=== PATIENT | female | born 1960 | race Caucasian/White ===

== ENCOUNTER → 2023-08-08 19:03 | Outpatient (REF) | payer BC, SELFPAY | LOC: WDC 19:03 | PROVIDERS: ATTENDING PHYSICIAN Nurse Practitioner; FAMILY PHYSICIAN Internal Medicine | DX: Z12.31 Encounter for screening mammogram for malignant neoplasm of breast (principal) | CPT/HCPCS: 77063; 77067 ==

== ENCOUNTER → 2023-09-10 10:07 | Outpatient (REF) | payer BC, SELFPAY ==
[2023-09-10 11:16] LABS: % Basophils 0.9 % (0-2); % Eosinophils 2.8 % (0-6); % Immature Granulocytes 0.2 % (0-0.5); % Lymphocytes 29.8 % (20.5-51.1); % Monocytes 7.2 % (1.7-9.3); % Neutrophils 59.1 % (42.2-75.2); Absolute Basophils 0.1 10^3/uL (0-0.2); Absolute Eosinophils 0.2 10^3/uL (0-0.7); Absolute Lymphocytes 1.7 10^3/uL (1.2-3.4); Absolute Monocytes 0.4 10^3/uL (0.1-0.6); Absolute Neutrophils 3.4 10^3/uL (1.4-6.5); Hematocrit 42.7 % (37.0-47.0); Hemoglobin 13.9 g/dL (12.0-16.0); Mean Corp Hgb Conc. 32.6 g/dL (33.0-37.0); Mean Corpuscular Hgb 28.1 pg (27.0-31.0); Mean Corpuscular Volume 86.4 fL (81.0-99.0); Mean Platelet Volume 9.1 fL (7.4-10.4); Nucleated Red Blood Cells % 0 %; Platelet Count 267 10^3/uL (130-400); Red Blood Cell Count 4.94 10^6/uL (4.20-5.40); Red Cell Dist. Width 12.6 % (11.5-14.5); White Blood Cell Count 5.7 10^3/uL (4.8-10.8)
[2023-09-10 11:43] LABS: ALT (SGPT) 14 U/L (0-35); AST (SGOT) 20 U/L (14-36); Albumin 4.1 g/dl (3.5-5.0); Alkaline Phosphatase 88 U/L (38-126); Blood Urea Nitrogen 17 mg/dl (7-17); Calcium 9.5 mg/dl (8.4-10.2); Carbon Dioxide 29 mmol/L (22-30); Chloride 99 mmol/L (98-107); Glucose 134 mg/dl (70-99); HDL Cholesterol 57 mg/dl; LDL Cholesterol, Calculated 81 mg/dl; Potassium 4.3 mmol/L (3.5-5.1); Sodium 136 mmol/L (135-145); Total Bilirubin 0.8 mg/dl (0.2-1.3); Total Cholesterol 161 mg/dl (50-199); Total Protein 7.4 g/dl (6.3-8.2); Triglyceride 115 mg/dl (10-149); Very Low Density Lipoprotein 23 mg/dl (0-30); eGFR > 60.00
[2023-09-10 12:07] LABS: TSH 2.57 uIU/ml (0.47-4.68)
[2023-09-10 12:32] LABS: Microalbumin, Random Urine < 0.6 mg/dl (0.6-1.7)
[2023-09-10 12:49] LABS: Glycohemoglobin (HgbA1c) 7.8 % (4.0-5.6)
== END ==
LOC: REG 10:07
PROVIDERS: ATTENDING PHYSICIAN Internal Medicine
DX: Z00.00 Encounter for general adult medical examination without abnormal findings (principal); E11.65 Type 2 diabetes mellitus with hyperglycemia; E78.5 Hyperlipidemia, unspecified; E03.9 Hypothyroidism, unspecified
CPT/HCPCS: 36415; 80053; 80061; 82043; 82570; 83036; 84443; 85025

== ENCOUNTER → 2023-10-25 14:07 | Outpatient (REF) | payer BC, SELFPAY | LOC: RAD 14:07 | PROVIDERS: ATTENDING PHYSICIAN Internal Medicine | DX: M81.0 Age-related osteoporosis without current pathological fracture (principal) | CPT/HCPCS: 77080 ==

== ENCOUNTER → 2023-11-16 17:30 | Outpatient (REF) | payer BC, SELFPAY | LOC: RCS 17:30 | PROVIDERS: ATTENDING PHYSICIAN Internal Medicine | DX: I35.0 Nonrheumatic aortic (valve) stenosis (principal) | CPT/HCPCS: 93306 ==

== ENCOUNTER → 2024-02-09 13:50 | Outpatient (REF) | payer BC, SELFPAY | LOC: HWRAD 13:50 | PROVIDERS: ATTENDING PHYSICIAN Nurse Practitioner | DX: M25.552 Pain in left hip (principal) | CPT/HCPCS: 73502 ==

== ENCOUNTER → 2024-02-25 10:26 | Outpatient (REF) | payer BC, SELFPAY | LOC: RAD 10:26 | PROVIDERS: ATTENDING PHYSICIAN Student in an Organized Health Care Education/Training Program; FAMILY PHYSICIAN Internal Medicine | DX: M25.552 Pain in left hip (principal) | CPT/HCPCS: 73700 ==

== ENCOUNTER → 2024-05-12 11:09 | Outpatient (REF) | payer BC, SELFPAY ==
[2024-05-12 12:35] LABS: Glycohemoglobin (HgbA1c) 6.2 % (4.0-5.6)
[2024-05-12 12:44] LABS: Amylase 43 U/L (30-110); Lipase 67 U/L (23-300)
== END ==
LOC: REG 11:09
PROVIDERS: ATTENDING PHYSICIAN Internal Medicine
DX: E11.65 Type 2 diabetes mellitus with hyperglycemia (principal)
CPT/HCPCS: 36415; 82150; 83036; 83690

== ENCOUNTER → 2024-08-11 09:50 | Outpatient (REF) | payer BC, SELFPAY | LOC: WDC 09:50 | PROVIDERS: ATTENDING PHYSICIAN Nurse Practitioner; FAMILY PHYSICIAN Internal Medicine | DX: Z12.31 Encounter for screening mammogram for malignant neoplasm of breast (principal) | CPT/HCPCS: 77063; 77067 ==

== ENCOUNTER → 2024-09-08 10:41 | Outpatient (REF) | payer BC, SELFPAY ==
[2024-09-08 12:23] LABS: % Basophils 0.9 % (0-2); % Eosinophils 1.8 % (0-6); % Immature Granulocytes 0.2 % (0-0.5); % Monocytes 6.8 % (1.7-9.3); % Neutrophils 59.3 % (42.2-75.2); Absolute Basophils 0.1 10^3/uL (0-0.2); Absolute Eosinophils 0.1 10^3/uL (0-0.7); Absolute Lymphocytes 1.7 10^3/uL (1.2-3.4); Absolute Monocytes 0.4 10^3/uL (0.1-0.6); Absolute Neutrophils 3.3 10^3/uL (1.4-6.5); Hematocrit 44.7 % (37.0-47.0); Hemoglobin 14.5 g/dL (12.0-16.0); Mean Corp Hgb Conc. 32.4 g/dL (33.0-37.0); Mean Corpuscular Volume 86.5 fL (81.0-99.0); Mean Platelet Volume 9.3 fL (7.4-10.4); Nucleated Red Blood Cells % 0 %; Platelet Count 278 10^3/uL (130-400); Red Blood Cell Count 5.17 10^6/uL (4.20-5.40); Red Cell Dist. Width 13.2 % (11.5-14.5); White Blood Cell Count 5.6 10^3/uL (4.8-10.8)
[2024-09-08 12:51] LABS: ALT (SGPT) 15 U/L (0-35); AST (SGOT) 21 U/L (14-36); Albumin 4.1 g/dl (3.5-5.0); Alkaline Phosphatase 89 U/L (38-126); Blood Urea Nitrogen 16 mg/dl (7-17); Calcium 9.4 mg/dl (8.4-10.2); Carbon Dioxide 30 mmol/L (22-30); Chloride 103 mmol/L (98-107); Glucose 106 mg/dl (70-99); HDL Cholesterol 53 mg/dl; LDL Cholesterol, Calculated 86 mg/dl; Potassium 4.7 mmol/L (3.5-5.1); Sodium 141 mmol/L (135-145); Total Bilirubin 0.9 mg/dl (0.2-1.3); Total Cholesterol 156 mg/dl (50-199); Total Protein 7.7 g/dl (6.3-8.2); Triglyceride 89 mg/dl (10-149); Very Low Density Lipoprotein 17 mg/dl (0-30); eGFR > 60.00
[2024-09-08 13:18] LABS: TSH 1.88 uIU/ml (0.47-4.68)
[2024-09-08 13:46] LABS: Microalbumin, Random Urine 0.8 mg/dl (0.6-1.7); Microalbumin/creatinine Ratio 6.2 mg/g
[2024-09-08 14:10] LABS: Glycohemoglobin (HgbA1c) 6.2 % (4.0-5.6)
== END ==
LOC: REG 10:41
PROVIDERS: ATTENDING PHYSICIAN Internal Medicine
DX: E11.65 Type 2 diabetes mellitus with hyperglycemia (principal); E03.9 Hypothyroidism, unspecified; E78.5 Hyperlipidemia, unspecified
CPT/HCPCS: 80053; 80061; 82043; 82570; 83036; 84443; 85025

== ENCOUNTER → 2025-05-04 10:42 | Outpatient (REF) | payer BC, SELFPAY ==
[2025-05-04 12:39] LABS: Glycohemoglobin (HgbA1c) 6.2 % (4.0-5.9)
== END ==
LOC: REG 10:42
PROVIDERS: ATTENDING PHYSICIAN Internal Medicine
DX: E11.65 Type 2 diabetes mellitus with hyperglycemia (principal)
CPT/HCPCS: 36415; 83036